=== PATIENT | female | born 1960 | race Caucasian/White ===

== ENCOUNTER 2017-02-04 06:38 | Emergency (ER) | payer BC ==
[2017-02-04] MEDS ORDERED: Magnesium Citrate 300 ML BOT ONE (07:17)
== END 2017-02-04 07:30 | disposition home or self-care (01) ==
LOC: MADERS 06:38
DX: K59.00 Constipation, unspecified (principal)
CPT/HCPCS: 99283

== ENCOUNTER 2022-06-05 09:36 | Emergency (ER) | payer BC | END 2022-06-05 10:10 | disposition home or self-care (01) | LOC: MADERS 09:36 | DX: U07.1 COVID-19 (principal); F17.210 Nicotine dependence, cigarettes, uncomplicated | CPT/HCPCS: 87804; 99283; U0003; U0005 ==